=== PATIENT | female | born 1985 | race Caucasian/White ===

== ENCOUNTER 2016-05-07 17:48 | Emergency (ER) | payer OTHER ==
--- NOTE | 2016-05-07 18:50 | ED NURSING NOTES ---
Clinical Report - Nurses [facility] [address] [place] [address] 05/07/2016 17:48 Patient: LISS HOOPER TRIAGE <<STRICKEN ENTRY-- Triage time 1550. Acuity: LEVEL 4. Chief Complaint: VOMITING and ABDOMINAL PAIN and (pt in with mother who states that all 3 family members have worms. she states that child vomited 2 nights ago and she saw "little threads 1-4 inches in length" in emesis). --17:59 Falguni Adame R.N. --END STRIKE>> Charted On Wrong Patient --18:42 Falguni Adame R.N. Triage time 1755. Chief Complaint: (Pt in stating that she had her kids hav worms. Have had for 1-2 months but "I just figured it out after I saw them in my sons vomit"). --18:46 Flaguni Adame R.N. 18:00 05/07/16. BP: 145/72. HR: 84. RR: 20. O2 saturation: 97%. Temp: 98.8 F. Pain level now: 10. Additional comments: chronic pain . --18:46 Falguni Adame R.N. Weight: 49.8 kg stated. Height/Length: 66 inches Per Patient. BMI: 17.7. --18:44 Falguni Adame R.N. Medications None. --17:59 Falguni Adame R.N. Allergies No Known Drug Allergy. --17:59 Falguni Adame R.N. History <<STRICKEN ENTRY-- Arrived by private vehicle. Historian: mother. Accompanied by mother. ( pt had c/o itchy bottom, gi upset and increased appetite). PAST MEDICAL HX: Negative. Immunizations: up-to-date. SURGERY HX: No history of previous surgery. SOCIAL HX: Second-hand smoke exposure (from mother). Caregiver- mother. He has had contact with a sick mother and sister. No infectious disease exposure. Does not attend daycare. --17:59 Falguni Adame R.N. --END STRIKE>> Charted On Wrong Patient --18:42 Falguni Adame R.N. Primary physician (angel). SOCIAL HX: Second-hand smoke exposure (pt smokes 1/2 ppd, occasional alcohol). --18:46 Falguni Adame R.N. PROBLEMS: Headache. Skin Rash. Back Pain. Bipolar Disorder. Depression. Migraine Headache. --18:43 Falguni Adame R.N. ADDITIONAL SURGERIES: Tonsillectomy. --18:43 Falguni Adame R.N. Interventions ID band on patient. To treatment room. --17:59 Falguni Adame R.N. PHYSICAL ASSESSMENT 18:00. Ambulatory to room. GENERAL / NEURO / PSYCH: Alert. Appears in no acute distress. Development within normal limits for the patient's age. RESPIRATORY: Respirations not labored. CVS: Capillary refill less than 2 seconds. GI / : Abdomen soft. SKIN: Skin is warm and dry. --18:41 Falguni Adame R.N. NURSING PROGRESS NOTES 18:00. Patient identifiers checked. Call light placed in reach. Bed placed in lowest position. Patient placed in chair. Patient ready for evaluation- chart flagged. --18:41 Falguni Adame R.N. DISPOSITION / DISCHARGE 18:50. Condition at departure: unchanged and stable. No learning barriers present. Discharge instructions provided and reviewed with the patient. Reviewed medication(s) (Pin x). Treatments reviewed (wash everything in hot water). Patient verbalized understanding. Written instructions provided in Mosotho. The patient was discharged home and accompanied by spouse. --20:13 Falguni Adame R.N. 18:50 05/07/16. BP: deferred. HR: deferred. RR: deferred. O2 saturation: deferred. Temp: deferred. Pain level now deferred. --20:13 Falguni Adame R.N. Locked/Released at 05/07/2016 20:14 by Falguni Adame R.N.
--- NOTE | 2016-05-07 18:50 | ED NURSING NOTES ---
Clinical Report - Nurses [facility] [address] [place] [address] 05/07/2016 17:48 Patient: LISS HOOPER TRIAGE <<STRICKEN ENTRY-- Triage time 1550. Acuity: LEVEL 4. Chief Complaint: VOMITING and ABDOMINAL PAIN and (pt in with mother who states that all 3 family members have worms. she states that child vomited 2 nights ago and she saw "little threads 1-4 inches in length" in emesis). --17:59 Falguni Adame R.N. --END STRIKE>> Charted On Wrong Patient --18:42 Falguni Adame R.N. Triage time 1755. Chief Complaint: (Pt in stating that she had her kids hav worms. Have had for 1-2 months but "I just figured it out after I saw them in my sons vomit"). --18:46 Falguni Adame R.N. 18:00 05/07/16. BP: 145/72. HR: 84. RR: 20. O2 saturation: 97%. Temp: 98.8 F. Pain level now: 10. Additional comments: chronic pain . --18:46 Falguni Adame R.N. Weight: 49.8 kg stated. Height/Length: 66 inches Per Patient. BMI: 17.7. --18:44 Falguni Adame R.N. Medications None. --17:59 Falguni Adame R.N. Allergies No Known Drug Allergy. --17:59 Falguni Adame R.N. History <<STRICKEN ENTRY-- Arrived by private vehicle. Historian: mother. Accompanied by mother. ( pt had c/o itchy bottom, gi upset and increased appetite). PAST MEDICAL HX: Negative. Immunizations: up-to-date. SURGERY HX: No history of previous surgery. SOCIAL HX: Second-hand smoke exposure (from mother). Caregiver- mother. He has had contact with a sick mother and sister. No infectious disease exposure. Does not attend daycare. --17:59 Falguni Adame R.N. --END STRIKE>> Charted On Wrong Patient --18:42 Falguni Adame R.N. Primary physician (angel). SOCIAL HX: Second-hand smoke exposure (pt smokes 1/2 ppd, occasional alcohol). --18:46 Falguni Adame R.N. PROBLEMS: Headache. Skin Rash. Back Pain. Bipolar Disorder. Depression. Migraine Headache. --18:43 Falguni Adame R.N. ADDITIONAL SURGERIES: Tonsillectomy. --18:43 Falguni Adame R.N. Interventions ID band on patient. To treatment room. --17:59 Falguni Adame R.N. PHYSICAL ASSESSMENT 18:00. Ambulatory to room. GENERAL / NEURO / PSYCH: Alert. Appears in no acute distress. Development within normal limits for the patient's age. RESPIRATORY: Respirations not labored. CVS: Capillary refill less than 2 seconds. GI / : Abdomen soft. SKIN: Skin is warm and dry. --18:41 Falguni Adame R.N. NURSING PROGRESS NOTES 18:00. Patient identifiers checked. Call light placed in reach. Bed placed in lowest position. Patient placed in chair. Patient ready for evaluation- chart flagged. --18:41 Falguni Adame R.N. DISPOSITION / DISCHARGE 18:50. Condition at departure: unchanged and stable. No learning barriers present. Discharge instructions provided and reviewed with the patient. Reviewed medication(s) (Pin x). Treatments reviewed (wash everything in hot water). Patient verbalized understanding. Written instructions provided in Kyrgyz. The patient was discharged home and accompanied by spouse. --20:13 Falguni Adame R.N. 18:50 05/07/16. BP: deferred. HR: deferred. RR: deferred. O2 saturation: deferred. Temp: deferred. Pain level now deferred. --20:13 Falguni Adame R.N. Locked/Released at 05/07/2016 20:14 by Falguni Adame R.N.
--- NOTE | 2016-05-07 18:50 | ED CLINICAL REPORT ---
Clinical Report - Physicians/Mid Levels [facility] [address] [place] [address] 05/07/2016 17:48 Patient: LISS HOOPER Time Seen: 1815; initial patient contact, initial documentation, patient care assumed. Arrived- By private vehicle. Historian- patient. HISTORY OF PRESENT ILLNESS Chief Complaint: ( worms). This started about 2 months ago and is still present. No current or associated symptoms. (no issues except the worms, everyone in house has them, small about size of hair, white). Similar symptoms previously: None. Recent medical care: The patient was seen recently in a clinic. ( went to about a month ago, said provider txed her rudely, and asked her if she had mental issues or did drugs, and nothing was prescribed, no f/u). REVIEW OF SYSTEMS All systems otherwise negative, except as recorded above. PAST HISTORY See nurses notes. PROBLEMS: Headache. Skin Rash. Back Pain. Bipolar Disorder. Depression. Migraine Headache. --18:43 Falguni Adame R.N. ADDITIONAL SURGERIES: Tonsillectomy. --18:43 Falguni Adame R.N. SOCIAL HISTORY Light tobacco smoker. Occasional alcohol use. No drug use. No recent travel. Is a local resident. She lives with spouse. FAMILY HISTORY Negative. ADDITIONAL NOTES The nursing notes have been reviewed with agreement regarding the chief complaint, HPI, ROS, PMH and patient medications and allergies. PHYSICAL EXAM Vital Signs: 05/07/2016 18:00 BP: 145/72. HR: 84. RR: 20. O2 saturation: 97%. Temp: 98.8 F. Pain level now: 4/10. Have been reviewed as normal and appear to be correct. Appearance: Alert. No acute distress. Eyes: Pupils equal, round and reactive to light. Eyes normal inspection. Neck: Normal inspection. Neck supple. CVS: Normal heart rate and rhythm. Heart sounds normal. Pulses normal. Respiratory: No respiratory distress. Breath sounds normal. Chest nontender. Abdomen: No visible injury. Soft and nontender. Back: Normal inspection. Skin: Skin warm and dry. Normal skin color. No rash. Normal skin turgor. Extremities: Extremities exhibit normal ROM. No lower extremity edema. Neuro: Oriented X 3. No motor deficit. No sensory deficit. PROGRESS AND PROCEDURES Patient counseled in person regarding the patient's stable condition and diagnosis. 18:50. Differential Diagnosis: Other possible considerations: worms, parasites. Above considerations are based on history and physical exam. Differential diagnosis was discussed with patient. Disposition: Discharged home in good and unchanged condition (18:50). Condition: good and stable. CLINICAL IMPRESSION Pinworm INSTRUCTIONS (over the counter worming medicine, such as pin-x and use as directed). Warnings: GENERAL WARNINGS: Return or contact your physician immediately if your condition worsens or changes unexpectedly, if not improving as expected, or if other problems arise. Specifically return if problem worsens. Follow-up: Follow up with your doctor in about one week as needed. Call for an appointment. Summary of care provided to patient. Understanding of the discharge instructions verbalized by patient. (Electronically signed by Lillie Cullen A.R.N.P. 05/07/2016 19:45)
--- NOTE | 2016-05-07 20:15 | ED DISCHARGE INSTRUCTIONS ---
Patient: LISS HOOPER General Instructions [facility] VisitID: [id number] [place] [address] 31y, F Registration Date/Time: 05/07/2016 Pinworm INSTRUCTIONS (over the counter worming medicine, such as pin-x and use as directed). Warnings: GENERAL WARNINGS: Return or contact your physician immediately if your condition worsens or changes unexpectedly, if not improving as expected, or if other problems arise. Specifically return if problem worsens. Follow-up: Follow up with your doctor in about one week as needed. Call for an appointment. Summary of care provided to patient. Understanding of the discharge instructions verbalized by patient. ADDITIONAL INFORMATION Pinworms [Child] P inworms are parasites that look like tiny (1/2 " long) white worms that live in the colon and rectum of humans. This is not uncommon among children under the age of ten years. A child with a pinworm infection will have intense itching around the anus (rectal opening) during the night. This is when pinworms come out of the rectum and lay eggs around the anus. When the child scratches this area, the eggs get under the fingernails. When other children as well as family members have dywq-[id number] contact with the infected child, eggs are passed. If you do not wash your hands after contact, the eggs get onto the food that you eat, and then an infection occurs. Treatment is with two doses of medicine taken two weeks apart. All family members should be treated at the same time , even those without symptoms. This is to be sure all pinworms and eggs among family members are killed at once. Home Care: 1) Sheets, bedding, underwear, and pajamas should be washed in hot water and then ironed to kill the eggs. 2) Parents and caretakers should wash their hands frequently especially before preparing meals, eating food and after changing or bathing the child with the infection. 3) Trim your child's nails and clean them each morning until the anal itching stops. 4) If your child is old enough, teach him/her to wash his/her hands before eating and after using the toilet. Follow Up with your doctor as advised to be sure the infection has cleared after treatment. Get Prompt Medical Attention if any of the following occur: -- Abdominal pain -- Increasing redness, drainage of fluid or crusty scabs around the anus -- Continued itching around the anus after finishing the second dose of the medicine You have been given the following additional information: Pinworms (Electronically signed by Lillie Cullen A.R.N.P. 05/07/2016 19:45)
--- NOTE | 2016-05-07 20:15 | ED MED RECONCILIATION SUMMARY ---
Patient: LISS HOOPER Medication Reconciliation Report [facility] VisitID: [id number] [address] [place] [place] [address] 31y, F Registration Date/Time: 05/07/2016 Weight: 49.8 kg Height/Length: 66 in. BMI: 17.7 ALLERGIES: No Known Drug Allergy The patient's Home Medications are listed below: NONE. The source(s) of the original Home Medication information: Not obtained. The following Medications were given to the patient in the Emergency Department: None. The following Medications were prescribed to the patient: None.
--- NOTE | 2016-05-07 20:15 | ED MAR SUMMARY ---
..... Medication Administration Record [facility] [address] [place], [place] [id number] Patient: LISS HOOPER Visit ID: [id number] 31y, F Weight: 49.8 kg Height/Length: 66 in BMI: 17.7 ALLERGIES: No Known Drug Allergy
--- NOTE | 2016-05-07 20:15 | ED MAR SUMMARY ---
..... Medication Administration Record [facility] [address] [place], [place] [id number] Patient: LISS HOOPER Visit ID: [id number] 31y, F Weight: 49.8 kg Height/Length: 66 in BMI: 17.7 ALLERGIES: No Known Drug Allergy
--- NOTE | 2016-05-07 20:15 | ED MED RECONCILIATION SUMMARY ---
Patient: LISS HOOPER Medication Reconciliation Report [facility] VisitID: [id number] [address] [place] [place] [address] 31y, F Registration Date/Time: 05/07/2016 Weight: 49.8 kg Height/Length: 66 in. BMI: 17.7 ALLERGIES: No Known Drug Allergy The patient's Home Medications are listed below: NONE. The source(s) of the original Home Medication information: Not obtained. The following Medications were given to the patient in the Emergency Department: None. The following Medications were prescribed to the patient: None.
--- NOTE | 2016-05-07 20:15 | ED DISCHARGE INSTRUCTIONS ---
Patient: LISS HOOPER General Instructions [facility] VisitID: [id number] [place] [address] 31y, F Registration Date/Time: 05/07/2016 Pinworm INSTRUCTIONS (over the counter worming medicine, such as pin-x and use as directed). Warnings: GENERAL WARNINGS: Return or contact your physician immediately if your condition worsens or changes unexpectedly, if not improving as expected, or if other problems arise. Specifically return if problem worsens. Follow-up: Follow up with your doctor in about one week as needed. Call for an appointment. Summary of care provided to patient. Understanding of the discharge instructions verbalized by patient. ADDITIONAL INFORMATION Pinworms [Child] P inworms are parasites that look like tiny (1/2 " long) white worms that live in the colon and rectum of humans. This is not uncommon among children under the age of ten years. A child with a pinworm infection will have intense itching around the anus (rectal opening) during the night. This is when pinworms come out of the rectum and lay eggs around the anus. When the child scratches this area, the eggs get under the fingernails. When other children as well as family members have [id number] contact with the infected child, eggs are passed. If you do not wash your hands after contact, the eggs get onto the food that you eat, and then an infection occurs. Treatment is with two doses of medicine taken two weeks apart. All family members should be treated at the same time , even those without symptoms. This is to be sure all pinworms and eggs among family members are killed at once. Home Care: 1) Sheets, bedding, underwear, and pajamas should be washed in hot water and then ironed to kill the eggs. 2) Parents and caretakers should wash their hands frequently especially before preparing meals, eating food and after changing or bathing the child with the infection. 3) Trim your child's nails and clean them each morning until the anal itching stops. 4) If your child is old enough, teach him/her to wash his/her hands before eating and after using the toilet. Follow Up with your doctor as advised to be sure the infection has cleared after treatment. Get Prompt Medical Attention if any of the following occur: -- Abdominal pain -- Increasing redness, drainage of fluid or crusty scabs around the anus -- Continued itching around the anus after finishing the second dose of the medicine You have been given the following additional information: Pinworms (Electronically signed by Lillie Cullen A.R.N.P. 05/07/2016 19:45)
== END 2016-05-07 18:52 | disposition home or self-care (01) ==
LOC: ED SRH 17:48 → EDBD 17:49 → EDSEX 17:49 → ED SRH 18:52
DX: B80 Enterobiasis (principal); F17.210 Nicotine dependence, cigarettes, uncomplicated

== ENCOUNTER 2016-05-17 18:33 | Emergency (ER) | payer OTHER ==
--- NOTE | 2016-05-17 19:22 | ED NURSING NOTES ---
Clinical Report - Nurses [facility] [address] [place] [address] 05/17/2016 18:33 Patient: LISS HOOPER TRIAGE Triage time 1840. Acuity: LEVEL 4. Chief Complaint: FEVER, COUGH, SORE THROAT and BODY ACHES and (was seen last week for pin-worms). --18:47 Falguni Adame R.N. 18:35 05/17/16. BP: 149/76. HR: 118. RR: 20. O2 saturation: 100%. Temp: 98.5 F. Pain level now: 07/07. Additional comments: chronic neck and back pain , headache-5 . --18:47 Falguni Adame R.N. Weight: 49.8 kg stated. Height/Length: 66 inches Per Patient. BMI: 17.7. --18:44 Falguni Adame R.N. Medications None. --18:45 Falguni Adame R.N. Allergies Sulfa Antibiotics. --18:45 Falguni Adame R.N. History Arrived by private vehicle. Historian: patient. Accompanied by friend. Primary physician (angel). Onset. (). She has had chills, fatigue and a headache. ( nausea). PAST MEDICAL HX: Last normal menstrual period- 1 month. SOCIAL HX: Light tobacco smoker (cigarette)- less than 1/2 a pack per day. History of drug use: marijuana. No alcohol use. --18:47 Falguni Adame R.N. PROBLEMS: Pinworm. Headache. Skin Rash. Back Pain. Bipolar Disorder. Depression. Migraine Headache. --18:44 Falguni Adame R.N. ADDITIONAL SURGERIES: Tonsillectomy. --18:44 Falguni Adame R.N. Interventions ID band on patient. To treatment room. --18:47 Falguni Adame R.N. PHYSICAL ASSESSMENT 18:40. Ambulatory to room. Patient gowned. GENERAL / NEURO / PSYCH: Alert. Oriented X 4. Appears in no acute distress. She has had weakness (general body aches). RESPIRATORY: Cough. CVS: Capillary refill less than 2 seconds. GI / : The patient has had nausea and diarrhea. Abdomen soft. No emesis noted. SKIN: Skin is warm and dry. --18:48 Falguni Adame R.N. NURSING PROGRESS NOTES 18:40. Head of bed elevated. Reassurance given. Patient identifiers checked. Call light placed in reach. Side rails up. Bed placed in lowest position. Patient ready for evaluation- chart flagged and notification provided. --18:47 Falguni Adame R.N. DISPOSITION / DISCHARGE 1930. Condition at departure: stable. No learning barriers present. Discharge instructions provided and reviewed with the patient. Reviewed medication(s) (tylenol, motrin, muconex). Patient verbalized understanding. Written instructions provided in Russian. The patient was discharged home and accompanied by baseball club manager. She left the Emergency Department ambulatory and via private vehicle. Compliance Intern driving. --19:39 Falguni Adame R.N. 19:25 05/17/16. BP: deferred. HR: deferred. RR: deferred. O2 saturation: deferred. Temp: deferred. Pain level now: 07/07. --19:39 Falguni Adame R.N. Locked/Released at 05/17/2016 19:40 by Falguni Adame R.N.
--- NOTE | 2016-05-17 19:22 | ED NURSING NOTES ---
Clinical Report - Nurses [facility] [address] [place] [address] 05/17/2016 18:33 Patient: LISS HOOPER TRIAGE Triage time 1840. Acuity: LEVEL 4. Chief Complaint: FEVER, COUGH, SORE THROAT and BODY ACHES and (was seen last week for pin-worms). --18:47 Falguni Adame R.N. 18:35 05/17/16. BP: 149/76. HR: 118. RR: 20. O2 saturation: 100%. Temp: 98.5 F. Pain level now: 07/07. Additional comments: chronic neck and back pain , headache-5 . --18:47 Falguni Adame R.N. Weight: 49.8 kg stated. Height/Length: 66 inches Per Patient. BMI: 17.7. --18:44 Falguni Adame R.N. Medications None. --18:45 Falguni Adame R.N. Allergies Sulfa Antibiotics. --18:45 Falguni Adame R.N. History Arrived by private vehicle. Historian: patient. Accompanied by friend. Primary physician (angel). Onset. (). She has had chills, fatigue and a headache. ( nausea). PAST MEDICAL HX: Last normal menstrual period- 1 month. SOCIAL HX: Light tobacco smoker (cigarette)- less than 1/2 a pack per day. History of drug use: marijuana. No alcohol use. --18:47 Falguni Adame R.N. PROBLEMS: Pinworm. Headache. Skin Rash. Back Pain. Bipolar Disorder. Depression. Migraine Headache. --18:44 Falguni Adame R.N. ADDITIONAL SURGERIES: Tonsillectomy. --18:44 Falguni Adame R.N. Interventions ID band on patient. To treatment room. --18:47 Falguni Adame R.N. PHYSICAL ASSESSMENT 18:40. Ambulatory to room. Patient gowned. GENERAL / NEURO / PSYCH: Alert. Oriented X 4. Appears in no acute distress. She has had weakness (general body aches). RESPIRATORY: Cough. CVS: Capillary refill less than 2 seconds. GI / : The patient has had nausea and diarrhea. Abdomen soft. No emesis noted. SKIN: Skin is warm and dry. --18:48 Falguni Adame R.N. NURSING PROGRESS NOTES 18:40. Head of bed elevated. Reassurance given. Patient identifiers checked. Call light placed in reach. Side rails up. Bed placed in lowest position. Patient ready for evaluation- chart flagged and notification provided. --18:47 Falguni Adame R.N. DISPOSITION / DISCHARGE 1930. Condition at departure: stable. No learning barriers present. Discharge instructions provided and reviewed with the patient. Reviewed medication(s) (tylenol, motrin, muconex). Patient verbalized understanding. Written instructions provided in Panamanian. The patient was discharged home and accompanied by software administrator. She left the Emergency Department ambulatory and via private vehicle. Field Marketing Specialist driving. --19:39 Falguni Adame R.N. 19:25 05/17/16. BP: deferred. HR: deferred. RR: deferred. O2 saturation: deferred. Temp: deferred. Pain level now: 07/07. --19:39 Falguni Adame R.N. Locked/Released at 05/17/2016 19:40 by Falguni Adame R.N.
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
--- NOTE | 2016-05-17 21:34 | ED MED RECONCILIATION SUMMARY ---
Patient: LISS HOOPER Medication Reconciliation Report [facility] VisitID: [id number] [address] [place] [address] 31y, F Registration Date/Time: 05/17/2016 Weight: 49.8 kg Height/Length: 66 in. BMI: 17.7 ALLERGIES: Sulfa Antibiotics The patient's Home Medications are listed below: NONE. The source(s) of the original Home Medication information: Not obtained. The following Medications were given to the patient in the Emergency Department: None. The following Medications were prescribed to the patient: Mucinex DM: (available over the counter) take 1 tablet orally every 12 hours. Dispense twenty (20). No refill. -- Lillie Cullen A.R.N.P.
--- NOTE | 2016-05-17 21:34 | ED MAR SUMMARY ---
..... Medication Administration Record [facility] [address], [place] [id number] Patient: LISS HOOPER Visit ID: [id number] 31y, F Weight: 49.8 kg Height/Length: 66 in BMI: 17.7 ALLERGIES: Sulfa Antibiotics
--- NOTE | 2016-05-17 21:34 | ED MED RECONCILIATION SUMMARY ---
Patient: LISS HOOPER Medication Reconciliation Report [facility] VisitID: [id number] [address] [place] [address] 31y, F Registration Date/Time: 05/17/2016 Weight: 49.8 kg Height/Length: 66 in. BMI: 17.7 ALLERGIES: Sulfa Antibiotics The patient's Home Medications are listed below: NONE. The source(s) of the original Home Medication information: Not obtained. The following Medications were given to the patient in the Emergency Department: None. The following Medications were prescribed to the patient: Mucinex DM: (available over the counter) take 1 tablet orally every 12 hours. Dispense twenty (20). No refill. -- Lillie Cullen A.R.N.P.
--- NOTE | 2016-05-17 21:34 | ED DISCHARGE INSTRUCTIONS ---
Patient: LISS HOOPER General Instructions [facility] VisitID: [id number] [address] [place] [address] 31y, F Registration Date/Time: 05/17/2016 Acute viral rhinitis. INSTRUCTIONS Alternate Tylenol (Acetaminophen) and Motrin (Ibuprofen) for fever, temperature greater than 101 degrees orally. Take according to label instructions. Drink plenty of fluids for the next 24 hours until better. Do not smoke. Warnings: GENERAL WARNINGS: Return or contact your physician immediately if your condition worsens or changes unexpectedly, if not improving as expected, or if other problems arise. Specifically return if problem worsens. OTC Medications: Mucinex DM: (available over the counter) take 1 tablet orally every 12 hours. Dispense twenty (20). No refill. Follow-up: Follow up with your doctor in about three days as needed. Call for an appointment. Summary of care provided to patient. Understanding of the discharge instructions verbalized by patient. ADDITIONAL INFORMATION Viral Respiratory Illness [Adult] You have an Upper Respiratory Illness (URI) caused by a virus. This illness is contagious during the first few days. It is spread through the air by coughing and sneezing or by direct contact (touching the sick person and then touching your own eyes, nose or mouth). Most viral illnesses go away within 7-10 days with rest and simple home remedies. Sometimes, the illness may last for several weeks. Antibiotics will not kill a virus and are generally not prescribed for this condition. Home Care: 1) If symptoms are severe, rest at home for the first 2-3 days. When you resume activity, don't let yourself get too tired. 2) Avoid being exposed to cigarette smoke (yours or others). 3) Tylenol (acetaminophen) or ibuprofen (Advil, Motrin) will help fever, muscle aching and headache. (Persons under 18 with fever should not take aspirin since this may cause liver damage.) 4) Your appetite may be poor, so a light diet is fine. Avoid dehydration by drinking 6-8 glasses of fluids per day (water, soft drinks, juices, tea, soup). Extra fluids will help loosen secretions in the nose and lungs. 5) Wdst-axp-mmqpenr cold medicines will not shorten the length of time youre sick, but they may be helpful for the following symptoms: cough (Robitussin DM); sore throat (Chloraseptic lozenges or spray); nasal and sinus congestion (Actifed, Sudafed, Chlortrimeton). Follow Up with your doctor or as advised if you dont improve over the next week. Get Prompt Medical Attention if any of the following occur: -- Cough with lots of colored sputum (mucus) or blood in your sputum -- Chest pain, shortness of breath, wheezing or have trouble breathing -- Severe headache; face, neck or ear pain -- Fever over 100.4 F (38.0 C) for more than three days -- You cant swallow due to throat pain Fever Control (Adult) A fever is a natural reaction of the body to an illness. In most cases, the temperature itself is not harmful. It actually helps the body fight infections. A fever does not need to be treated unless you feel very uncomfortable. Home Care If you feel warm, check your temperature. If you feel very uncomfortable and your temperature is at or higher than 100.4F (38C) oral, you may take acetaminophen (Tylenol) every 4 to 6 hours. If you cant take or keep down oral medicine, ask your pharmacist for Tylenol suppositories, which you can get without a prescription. If the fever does not respond to acetaminophen within 1 hour, take ibuprofen (Advil or Motrin). If this works, keep taking the ibuprofen every 6 to 8 hours. Note: If you have chronic liver or kidney disease or ever had a stomach ulcer or GI bleeding, talk with your doctor before using these medications. If either medication alone does not keep the fever down, you may alternate the two medicines every 3 to 4 hours, only if your healthcare provider has instructed you to do so. For example, take Motrin then wait 3 hours, take Tylenol then wait 3 hours, take Motrin, and so on. Follow your healthcare providers instructions exactly. Clothing: Keep clothing light because excess body heat is lost through the skin. The fever will go up if you wear extra layers or wrap in blankets. Fluids: Fever causes the body to lose water through evaporation. Drink plenty of fluids such as water, juice, clear sodas, anisha rm, or lemonade. Do not use aspirin in anyone under 18 years of age who is ill with a fever. It can cause severe liver damage. Follow Up with your doctor or as advised by our staff if you do not get better after 48 hours. Get Prompt Medical Attention if any of the following occur: Fever does not get better after taking fever medication Fast or difficult breathing Earache, sinus pain, stiff or painful neck, headache, repeated diarrhea or vomiting You feel unusually irritable, drowsy, or confused A rash appears You feel weak or dizzy, or that you might faint Guaifenesin Oral syrup What is this medicine? GUAIFENESIN (gwye FEN e sin) is an expectorant. It helps to thin mucous and make coughs more productive. This medicine is used to treat coughs caused by colds or the flu. It is not intended to treat chronic cough caused by smoking, asthma, emphysema, or heart failure. How should I use this medicine? Take this medicine by mouth. Follow the directions on the prescription label. Use a specially marked spoon or container to measure your dose. Household spoons are not accurate. Take your medicine at regular intervals. Do not take it more often than directed. Talk to your terrazzo layer helper regarding the use of this medicine in children. Special care may be needed. What side effects may I notice from receiving this medicine? Side effects that you should report to your doctor or health acute care assistant as soon as possible: allergic reactions like skin rash, itching or hives, swelling of the face, lips, or tongue Side effects that usually do not require medical attention (report to your doctor or health acute care assistant if they continue or are bothersome): dizziness headache stomach upset What may interact with this medicine? Interactions are not expected. What if I miss a dose? If you miss a dose, take it as soon as you can. If it is almost time for your next dose, take only that dose. Do not take double or extra doses. Where should I keep my medicine? Keep out of the reach of children. Store at room temperature between 20 and 25 degrees C (68 and 77 degrees F). Do not freeze. Keep container tightly closed. Throw away any unused medicine after the expiration date. What should I tell my health care provider before I take this medicine? They need to know if you have any of these conditions: diabetes fever kidney disease an unusual or allergic reaction to guaifenesin, other medicines, foods, dyes, or preservatives or trying to get breast-feeding What should I watch for while using this medicine? Do not treat a cough for more than 1 week without consulting your doctor or health acute care assistant. If you also have a high fever, skin rash, continuing headache, or sore throat, see your doctor. For best results, drink 6 to 8 glasses water daily while you are taking this medicine. You have been given the following additional information: Uri, Viral, No Abx (Adult) Fever Control (Adult) Guaifenesin Oral syrup (Electronically signed by Lillie Cullen A.R.N.P. 05/17/2016 19:56)
--- NOTE | 2016-05-17 21:34 | ED MAR SUMMARY ---
..... Medication Administration Record [facility] [address] [place], [place] [id number] Patient: LISS HOOPER Visit ID: [id number] 31y, F Weight: 49.8 kg Height/Length: 66 in BMI: 17.7 ALLERGIES: Sulfa Antibiotics
== END 2016-05-17 19:30 | disposition home or self-care (01) ==
LOC: ED SRH 18:33
DX: J00 Acute nasopharyngitis [common cold] (principal); F17.210 Nicotine dependence, cigarettes, uncomplicated

== ENCOUNTER 2016-09-09 23:25 | Emergency (ER) | payer OTHER ==
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
--- NOTE | 2016-09-10 00:11 | ED ORDER SUMMARY ---
..... Patient: LISS HOOPER OrderSheet [facility] VisitID: [id number] [address] [place] [address] 31y, F Registration Date/Time: 09/09/2016 ORDER SHEET Weight: 54.4 kg (stated) Allergies: Sulfa Antibiotics GENERAL ORDERS: UA-Culture if indicated Urgent (23:37 09/09/2016 [facility] per protocol) (Ack 23:38 [facility]) ([facility] MEDICATION ORDERS: Pyridium PO 200 mg (NOW) (00:09 09/10/2016 Katie SAAB) (0:16 AS[facility]) Levaquin PO 750 mg (NOW) (00:10 09/10/2016 Katie SAAB) (0:16 AS[facility]) IV FLUIDS: ORDER SHEET NOTES: [Electronically signed by Aletha Rollins (00:18 09/10/2016)] [Electronically signed by Jose Elias Friend MD (23:17 09/11/2016)] [Electronically locked/signed by Aletha Rollins (00:18 09/10/2016)]
--- NOTE | 2016-09-10 00:11 | ED ORDER SUMMARY ---
..... Patient: LISS HOOPER OrderSheet [facility] VisitID: [id number] [address] [place] [address] 31y, F Registration Date/Time: 09/09/2016 ORDER SHEET Weight: 54.4 kg (stated) Allergies: Sulfa Antibiotics GENERAL ORDERS: UA-Culture if indicated Urgent (23:37 09/09/2016 [facility] per protocol) (Ack 23:38 [facility] Wire Repairer) (23:[facility] MEDICATION ORDERS: Pyridium PO 200 mg (NOW) (00:09 09/10/2016 Katie SAAB) (0:16 AS[facility]muck) Levaquin PO 750 mg (NOW) (00:10 09/10/2016 Katie SAAB) (0:16 AS[facility]uck) IV FLUIDS: ORDER SHEET NOTES: [Electronically signed by Aletha Rollins (00:18 09/10/2016)] [Electronically signed by Jose Elias Friend MD (23:17 09/11/2016)] [Electronically locked/signed by Aletha Rollins (00:18 09/10/2016)]
--- NOTE | 2016-09-11 23:17 | ED DISCHARGE INSTRUCTIONS ---
Patient: LISS HOOPER General Instructions [facility] VisitID: [id number] [place] [address] 31y, F Registration Date/Time: 09/09/2016 Acute urinary tract infection with cystitis. INSTRUCTIONS Drink plenty of fluids. No sexual contact until symptoms resolve. Warnings: Further evaluation is necessary. GENERAL WARNINGS: Return or contact your physician immediately if your condition worsens or changes unexpectedly, if not improving as expected, or if other problems arise. Your Current Medications: CONTINUE TAKING THE FOLLOWING MEDICATIONS: Imitrex Oral. Prescription Medications: Pyridium 200 mg: take 1 orally every 8 hours as needed for urinary problems. Dispense six (6). No refills. Substitution is permissible. Cipro 500 mg: take 1 tab orally every 12 hours for 7 days. Dispense fourteen (14). No refills. Substitution is permissible. Follow-up: Follow up with your doctor in three days if not better. Understanding of the discharge instructions verbalized by patient. ADDITIONAL INFORMATION Bladder Infection,Female (Adult) A bladder infection ("cystitis" or "UTI") usually causes a constant urge to urinate and a burning when passing urine. Urine may be cloudy, smelly or dark. There may be pain in the lower abdomen. A bladder infection occurs when bacteria from the vaginal area enter the bladder opening (urethra). This can occur from sexual intercourse, wearing tight clothing, dehydration and other factors. Home Care: Drink lots of fluids (at least 6-8 glasses a day, unless you must restrict fluids for other medical reasons). This will force the medicine into your urinary system and flush the bacteria out of your body. Avoid sexual intercourse until your symptoms are gone. Avoid caffeine, alcohol and spicy foods. These can irritate the bladder. A bladder infection is treated with antibiotics. You may also be given Pyridium (generic = phenazopyridine) to reduce the burning sensation. This medicine will cause your urine to become a bright orange color. The orange urine may stain clothing. You may wear a pad or panty-liner to protect clothing. Preventing Future Infections: Always wipe from front to back after a bowel movement. Keep the genital area clean and dry. Drink plenty of fluids each day to avoid dehydration. Both sexual partners should wash before intercourse. Urinate right after intercourse to flush out the bladder. Wear cotton underwear and cotton-lined panty hose; avoid tight-fitting pants. If you are on control pills and are having frequent bladder infections, discuss with your doctor. Follow Up: Return to this facility or see your doctor if ALL symptoms are not gone after three days of treatment. Get Prompt Medical Attention if any of the following occur: Fever of 100.4F (38C) or higher, or as directed by your healthcare provider No improvement by the third day of treatment Increasing back or abdominal pain Repeated vomiting; unable to keep medicine down Weakness, dizziness or fainting Vaginal discharge Pain, redness or swelling in the labia (outer vaginal area) You have been given the following additional information: Bladder Infection, Female (Adult) (Electronically signed by Jose Elias Friend MD 09/11/2016 23:17)
--- NOTE | 2016-09-11 23:17 | ED MAR SUMMARY ---
..... Medication Administration Record [facility] [address] [place] [address] Patient: LISS HOOPER Visit ID: [id number] 31y, F Weight: 54.4 kg Height/Length: 66 in BMI: 19.4 ALLERGIES: Sulfa Antibiotics Given 00:09/10/2016 Aletha Rollins, Medication Administered: PYRIDIUM [PO] (PHENAZOPYRIDINE HCL), Dose: 200 mg Tablets PO. Medication Ordered: Pyridium PO 200 mg (NOW). Given 00:09/10/2016 Aletha Rollins, Medication Administered: LEVAQUIN [PO] (LEVOFLOXACIN), Dose: 750 mg Tablets PO. Medication Ordered: Levaquin PO 750 mg (NOW).
--- NOTE | 2016-09-11 23:17 | ED MED RECONCILIATION SUMMARY ---
Patient: LISS HOOPER Medication Reconciliation Report [facility] VisitID: [id number] [address] [place] [address] 31y, F Registration Date/Time: 09/09/2016 Weight: 54.4 kg Height/Length: 66 in. BMI: 19.4 ALLERGIES: Sulfa Antibiotics The patient's Home Medications are listed below: CONTINUE TAKING THE FOLLOWING MEDICATIONS: Imitrex Oral The source(s) of the original Home Medication information: patient The following Medications were given to the patient in the Emergency Department: Levaquin [PO] PO 750 mg, administered: 09/10/2016 12:16:00 AM Pyridium [PO] PO 200 mg, administered: 09/10/2016 12:16:00 AM The following Medications were prescribed to the patient: Pyridium 200 mg: take 1 orally every 8 hours as needed for urinary problems. Dispense six (6). No refills. Substitution is permissible. -- Jose Elias Friend MD Cipro 500 mg: take 1 tab orally every 12 hours for 7 days. Dispense fourteen (14). No refills. Substitution is permissible. -- Jose Elias Friend MD
--- NOTE | 2016-09-11 23:17 | ED MED RECONCILIATION SUMMARY ---
Patient: LISS HOOPER Medication Reconciliation Report [facility] VisitID: [id number] [address] [place] [address] 31y, F Registration Date/Time: 09/09/2016 Weight: 54.4 kg Height/Length: 66 in. BMI: 19.4 ALLERGIES: Sulfa Antibiotics The patient's Home Medications are listed below: CONTINUE TAKING THE FOLLOWING MEDICATIONS: Imitrex Oral The source(s) of the original Home Medication information: patient The following Medications were given to the patient in the Emergency Department: Levaquin [PO] PO 750 mg, administered: 09/10/2016 12:16:00 AM Pyridium [PO] PO 200 mg, administered: 09/10/2016 12:16:00 AM The following Medications were prescribed to the patient: Pyridium 200 mg: take 1 orally every 8 hours as needed for urinary problems. Dispense six (6). No refills. Substitution is permissible. -- Jose Elias Friend MD Cipro 500 mg: take 1 tab orally every 12 hours for 7 days. Dispense fourteen (14). No refills. Substitution is permissible. -- Jose Elias Friend MD
--- NOTE | 2016-09-11 23:17 | ED MAR SUMMARY ---
..... Medication Administration Record [facility] [address] [place] [address] Patient: LISS HOOPER Visit ID: [id number] 31y, F Weight: 54.4 kg Height/Length: 66 in BMI: 19.4 ALLERGIES: Sulfa Antibiotics Given 00:09/10/2016 Aletha Rollins, Medication Administered: PYRIDIUM [PO] (PHENAZOPYRIDINE HCL), Dose: 200 mg Tablets PO. Medication Ordered: Pyridium PO 200 mg (NOW). Given 00:09/10/2016 Aletha Rollins, Medication Administered: LEVAQUIN [PO] (LEVOFLOXACIN), Dose: 750 mg Tablets PO. Medication Ordered: Levaquin PO 750 mg (NOW).
== END 2016-09-10 00:12 | disposition home or self-care (01) ==
LOC: ED SRH 23:25
DX: N30.00 Acute cystitis without hematuria (principal); B96.89 Other specified bacterial agents as the cause of diseases classified elsewhere; F31.9 Bipolar disorder, unspecified; Z79.899 Other long term (current) drug therapy; F17.210 Nicotine dependence, cigarettes, uncomplicated; Z88.1 Allergy status to other antibiotic agents
CPT/HCPCS: 90004; 90469